=== PATIENT | male | born 1985 | race Caucasian/White ===

== ENCOUNTER 2024-06-05 09:04 | Outpatient (REF) | payer BC, SELFPAY ==
--- NOTE | 2024-06-05 08:30 | SKI_PTH ---
PATIENT: Romaine Lerner LOC: NCN #:[id number] AGE/SX: 38/M ROOM: RE06/05/[address]: Will Matt : 1985 BED: DIS: 06/05/2024 SPEC #: [id number] RECD: 06/05/24 16:56 STATUS: MITCHELL REQ #: [id number] ELSY: 06/05/24 08:[address]: Will Matt DEPT: Surgical Specimen RECD BY: Ariadne Ross Tissues: 1 - SKIN BIOPSY(SHAVE/PUNCH) Procedures: SKIN LEVEL 4 Comments: [id number]
== END 2024-06-05 09:05 | disposition home or self-care (01) ==
LOC: NCHCN 09:04
PROVIDERS: PCP Family Medicine; Visit Provider Family Medicine
DX: D22.9 Melanocytic nevi, unspecified (principal)
CPT/HCPCS: 88305